=== PATIENT | male | born 2000 | race Caucasian/White ===

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

== ENCOUNTER 2019-01-20 11:33 | Emergency (ER) | payer SELFPAY ==
[~2019-01-20] VITALS: Ht 172.7 cm; Wt 80.3 kg
[~2019-01-20 11:33] MED LIST: CYCLOBENZAPRINE5 M3 PO; Motrin,Rufen800 MG PO
[2019-01-20] MEDS ORDERED: ZYRTEC10 MG PO (11:45)
[2019-01-20] MEDS ORDERED: AMOXICILLIN500 M2 PO (11:45)
== END 2019-01-20 12:00 | disposition home or self-care (01) ==
LOC: ED 11:33
DX: H66.93 Otitis media, unspecified, bilateral (principal); R10.30 Lower abdominal pain, unspecified; R11.10 Vomiting, unspecified; Z79.899 Other long term (current) drug therapy

== ENCOUNTER 2019-02-16 19:53 | Emergency (ER) | payer BC ==
[~2019-02-16] VITALS: Ht 172.7 cm; Wt 122.5 kg
[~2019-02-16 19:53] MED LIST changes: +AMOXICILLIN500 M2 PO; +ZYRTEC10 MG PO
[2019-02-16] MEDS ORDERED: FLONASE ALLERG9.9 ML NAS (20:41)
[2019-02-16] MEDS ORDERED: AMOXICILLIN500 M2 PO (20:41)
== END 2019-02-16 21:03 | disposition home or self-care (01) ==
LOC: ED 19:53
DX: J01.90 Acute sinusitis, unspecified (principal); J02.9 Acute pharyngitis, unspecified; H92.02 Otalgia, left ear

== ENCOUNTER 2019-02-21 16:48 | Emergency (ER) | payer BC ==
[~2019-02-21] VITALS: Ht 172.7 cm; Wt 77.1 kg
[~2019-02-21 16:48] MED LIST changes: +FLONASE ALLERG9.9 ML NAS
[2019-02-21 17:53] LABS: BASO % 0.4 % (0.0-1.0); EOS # 0.2 10*3/uL (0.0-0.4); HEMATOCRIT 46.7 % (42.0-52.0); HEMOGLOBIN 16.4 g/dl (14.0-18.0); LYMPH # 2.2 10*3/uL (1.3-4.4); LYMPH % 27.5 % (27.0-41.0); MEAN CORPUSCULAR HGB 31.6 pg (27.0-31.0); MEAN CORPUSCULAR HGB CONC 35.1 g/dl (33.0-37.0); MEAN PLATELET VOLUME 10.1 fl (9.6-12.3); MONO # 0.7 10*3/uL (0.1-1.0); MONO % 9.3 % (3.0-9.0); NEUT # 4.7 10*3/uL (2.3-7.9); NEUT % 59.4 % (47.0-73.0); PLATELET COUNT AUTOMATED 240 10*3/uL (130-400); RED BLOOD COUNT 5.19 10*6/uL (4.50-5.90); RED CELL DISTRI WIDTH 11.9 % (0-14.5)
[2019-02-21 17:53] LABS: BILIRUBIN NEGATIVE (NEGATIVE); BLOOD NEGATIVE (NEGATIVE); CLARITY CLEAR (CLEAR); COLOR YELLOW (YELLOW); GLUCOSE NEGATIVE (NEGATIVE); KETONE NEGATIVE (NEGATIVE); LEUKO ESTERASE NEGATIVE (NEGATIVE); NITRITE NEGATIVE (NEGATIVE)
[2019-02-21 18:04] LABS: EPITHELIAL CELLS 0-2
[2019-02-21 18:09] LABS: ALBUMIN 4.2 gm/dl (3.1-4.5); ALKALINE PHOSPHATASE 104 U/L (45-117); BUN 16 mg/dl (7-24); CHLORIDE 105 mmol/L (98-107); CREATININE 0.86 mg/dL (0.70-1.30); POTASSIUM 3.8 mmol/L (3.5-5.1); SGOT/AST 19 IU/L (3-35); SGPT/ALT 28 U/L (12-78); SODIUM 138 mmol/L (136-145); TOTAL PROTEIN 7.8 gm/dL (6.4-8.2)
[2019-02-21 18:10] LABS: URINE AMPHETAMINES < 1000 (1000ng/ml); URINE BARBITURATES < 200 (200ng/ml); URINE BENZODIAZEPINES < 200 (200ng/ml); URINE CANNABINOIDS (THC) < 50 (50ng/ml); URINE COCAINE < 300 (300ng/ml); URINE METHADONE < 300 (300ng/ml); URINE OPIATES < 300 (300ng/ml); URINE PHENCYCLIDINE < 25 (25ng/ml)
== END 2019-02-21 19:19 | disposition home or self-care (01) ==
LOC: ED 16:48
PROVIDERS: Physician Assistant
DX: R42 Dizziness and giddiness (principal); R51 Headache

== ENCOUNTER 2019-02-24 17:04 | Emergency (ER) | payer BC ==
[~2019-02-24] VITALS: Ht 172.7 cm; Wt 77.1 kg
== END 2019-02-24 18:57 | disposition home or self-care (01) ==
LOC: ED 17:04
DX: R42 Dizziness and giddiness (principal); H53.8 Other visual disturbances; R51 Headache

== ENCOUNTER 2019-05-08 15:15 | Emergency (ER) | payer BC ==
[~2019-05-08] VITALS: Ht 172.7 cm; Wt 79.4 kg
== END 2019-05-08 18:39 | disposition home or self-care (01) ==
LOC: ED 15:15
DX: R51 Headache (principal); R11.0 Nausea; R04.0 Epistaxis; R09.81 Nasal congestion

== ENCOUNTER 2019-05-21 17:31 | Emergency (ER) | payer BC ==
[~2019-05-21] VITALS: Ht 172.7 cm; Wt 83.5 kg
[2019-05-21 18:02] LABS: BASO # 0.1 10*3/uL (0.0-0.1); BASO % 0.6 % (0.0-1.0); EOS # 0.4 10*3/uL (0.0-0.4); EOS % 4.5 % (1.0-4.0); HEMATOCRIT 47.3 % (42.0-52.0); HEMOGLOBIN 16.7 g/dl (14.0-18.0); LYMPH # 2.2 10*3/uL (1.3-4.4); MEAN CELL VOLUME 89.6 fl (80.0-94.0); MEAN CORPUSCULAR HGB 31.6 pg (27.0-31.0); MEAN CORPUSCULAR HGB CONC 35.3 g/dl (33.0-37.0); MONO # 0.7 10*3/uL (0.1-1.0); MONO % 7.9 % (3.0-9.0); NEUT # 5.1 10*3/uL (2.3-7.9); NEUT % 60.6 % (47.0-73.0); PLATELET COUNT AUTOMATED 239 10*3/uL (130-400); RED BLOOD COUNT 5.28 10*6/uL (4.50-5.90); RED CELL DISTRI WIDTH 11.9 % (0-14.5); WHITE BLOOD COUNT 8.4 10*3/uL (4.8-10.8)
[2019-05-21 18:31] LABS: ALBUMIN 4.3 gm/dl (3.1-4.5); ALKALINE PHOSPHATASE 96 U/L (45-117); BUN 11 mg/dl (7-24); CHLORIDE 106 mmol/L (98-107); CREATININE 0.96 mg/dL (0.70-1.30); LIPASE 69 U/L (73-393); POTASSIUM 3.9 mmol/L (3.5-5.1); SGOT/AST 15 IU/L (3-35); SGPT/ALT 30 U/L (12-78); SODIUM 138 mmol/L (136-145); TOTAL PROTEIN 7.7 gm/dL (6.4-8.2)
[2019-05-21] MEDS ORDERED: ZOFRAN4 MG PO (18:43)
== END 2019-05-21 18:45 | disposition home or self-care (01) ==
LOC: ED 17:31
PROVIDERS: Nurse Practitioner Family
DX: B34.9 Viral infection, unspecified (principal); R11.2 Nausea with vomiting, unspecified

== ENCOUNTER 2020-02-04 16:36 | Emergency (ER) | payer OTHER ==
[~2020-02-04] VITALS: Wt 83.9 kg
[~2020-02-04 16:36] MED LIST changes: +ZOFRAN4 MG PO
== END 2020-02-04 18:09 | disposition home or self-care (01) ==
LOC: ED 16:36
DX: B34.9 Viral infection, unspecified (principal); Z20.828 Contact with and (suspected) exposure to other viral communicable diseases; Z79.899 Other long term (current) drug therapy

== ENCOUNTER → 2021-02-03 | Outpatient (CLI) | payer OTHER | END | disposition home or self-care (01) | LOC: COVID19 17:50 | PROVIDERS: ATTEND Internal Medicine | DX: Z11.52 Encounter for screening for COVID-19 (principal) ==

== ENCOUNTER 2021-02-25 13:07 | Emergency (ER) | payer OTHER ==
[~2021-02-25] VITALS: Ht 172.7 cm; Wt 90.7 kg
== END 2021-02-25 15:43 | disposition home or self-care (01) ==
LOC: ED 13:07
DX: R11.2 Nausea with vomiting, unspecified (principal)

== ENCOUNTER 2021-04-10 13:17 | Emergency (ER) | payer OTHER ==
[~2021-04-10] VITALS: Wt 90.7 kg
== END 2021-04-10 14:33 | disposition home or self-care (01) ==
LOC: ED 13:17
DX: J06.9 Acute upper respiratory infection, unspecified (principal); Z20.822 Contact with and (suspected) exposure to COVID-19